=== PATIENT | female | born 1995 | race Caucasian/White ===

== ENCOUNTER → 2023-07-13 13:01 | Outpatient (REF) | payer BC, SELFPAY | LOC: HWRAD 13:01 | PROVIDERS: ATTENDING PHYSICIAN Internal Medicine Rheumatology; FAMILY PHYSICIAN Family Medicine | DX: L40.50 Arthropathic psoriasis, unspecified (principal) | CPT/HCPCS: 73110; 73130 ==

== ENCOUNTER 2024-03-22 12:00 | Emergency (ER) | payer BC, SELFPAY ==
[2024-03-22 12:06] VITALS: BP 109/64
--- NOTE | 2024-03-22 12:10 | ED.GENMED ---
ED Provider Triage
<Allen Loera PA-C - Last Filed: 03/22/24 12:11>
-
Patient seen by provider in Triage?: Seen in Triage
Attestation: A medical screening examination has been initiated by a qualified medical provider. Based on the assessment performed at this time, it has been determined that an emergent medical condition may exist and the patient has been informed
that further medical evaluation and possible additional diagnostic testing may be needed.
HPI: 29-year-old female presenting to the emergency department for evaluation of left ankle pain after running and tripping and injuring the left lateral ankle. Pain is mostly lateral. No other injury sustained. Patient does note that she had
previous fracture and surgery to the left ankle a plate and screws but this was removed back in 2008.
GENERAL: Alert , in no apparent distress
EYE: No visual abnormalities.
NECK: Trachea midline
ENT: No visible abnormalities.
LUNGS: No acute respiratory distress
NEUROLOGICAL: Alert and oriented
SKIN: Skin intact. No visible changes.
MUSCULOSKELETAL: Tenderness and edema to the left lateral ankle. No proximal tib-fib tenderness. No tenderness over the base of the fifth metatarsal or the foot/midfoot.
PSYCH: Normal and appropriate interaction.
This is a medical evaluation conducted in person to initiate diagnostic evaluation and provide initial therapeutics. Please see further documentation by the treating clinician.
X-ray of the left ankle was ordered. Patient did take Motrin prior to arrival to the ER.
History of Present Illness
<Allen Loera PA-C - Last Filed: 03/22/24 12:11>
General
Chief Complaint: Musculo-Skeletal Complaint
Time Seen by Provider: 03/22/24 12:19
<Tavo Antoine Jr., PA-C - Last Filed: 03/22/24 13:50>
General
Source: patient and spouse
Exam Limitations: none
Nursing documentation reviewed up to this point in time: agreed with
History of Present Illness
History of Present Illness:
29-year-old female presenting to the emergency department today with concerns of left-sided ankle discomfort after twisting her ankle while running today. Difficulty ambulating since. Has no swelling mainly to the lateral malleolus. Denies
numbness weakness or additional concerns.
Past History
<Allen Loera PA-C - Last Filed: 03/22/24 12:11>
Past History
ED Past Medical History: None
ED Past Surgical History: Orthopedic
Social History
Tobacco: Non-smoker
Alcohol: None
Drug: None
Review of Systems
<Tavo Antoine Jr., PA-C - Last Filed: 03/22/24 13:50>
Review of Systems
Allergies reviewed?: Yes
All Other Systems: ROS reviewed and negative except as documented in HPI and ROS
Phy Exam
<Tavo Antoine Jr., PA-C - Last Filed: 03/22/24 13:50>
Physical Exam
Physical Exam:
GENERAL: Alert , in no apparent distress
EYE: pupils equal and reactive
NECK: Supple, no significant adenopathy.
ENT: o/p clr, mmm.
CARDIAC: Regular rate and rhythm .
LUNGS: Clear breath sounds bilaterally, no acute respiratory distress, no wheezes/rales/rhonchi
ABDOMEN: Soft, without focal tenderness, no r/g, no cvat
NEUROLOGICAL: Alert and oriented, no focal neuro deficits
SKIN: Warm and dry, skin intact.
MUSCULOSKELETAL: Significant swelling to the left ankle to the lateral malleolus. Tenderness mainly to the anterior aspect and increasing with inversion movement no tenderness to the medial malleolus remainder of the foot base of the fifth
metatarsal or the tib-fib. . No redness or warmth
PSYCH: Normal and appropriate interaction.
Course
<Allen Loera PA-C - Last Filed: 03/22/24 12:11>
Orders/Labs/Results
Orders:
Orders
03/22/24 12:09
Ankle, left 3 view CR [CR Ankle - Left Min 3 Views ] Urgent
Comment:
Reason For Exam: injury
03/22/24 13:39
Crutches-Treatment ONCE
boot [Ortho Boot Left- Treatment] ONCE
Short or tall?: Tall
Vital Signs
Initial and Last Documented VS:
Initial Vital Signs
Temp Pulse Resp BP Pulse Ox
98.1 F 99 16 109/64 98
03/22/24 12:06 03/22/24 12:06 03/22/24 12:06 03/22/24 12:06 03/22/24 12:06
Last Documented Vital Signs
Temp Pulse Resp BP Pulse Ox
98.1 F 99 16 109/64 98
03/22/24 12:06 03/22/24 12:06 03/22/24 12:06 03/22/24 12:06 03/22/24 12:06
<Tavo Antoine Jr., PA-C - Last Filed: 03/22/24 13:50>
Orders/Labs/Results
Orders:
Orders
03/22/24 12:09
Ankle, left 3 view CR [CR Ankle - Left Min 3 Views ] Urgent
Comment:
Reason For Exam: injury
03/22/24 13:39
Crutches-Treatment ONCE
boot [Ortho Boot Left- Treatment] ONCE
Short or tall?: Tall
Vital Signs
Initial and Last Documented VS:
Initial Vital Signs
Temp Pulse Resp BP Pulse Ox
98.1 F 99 16 109/64 98
03/22/24 12:06 03/22/24 12:06 03/22/24 12:06 03/22/24 12:06 03/22/24 12:06
Last Documented Vital Signs
Temp Pulse Resp BP Pulse Ox
98.1 F 99 16 109/64 98
03/22/24 12:06 03/22/24 12:06 03/22/24 12:06 03/22/24 12:06 03/22/24 12:06
<Tavo Antoine Jr., PA-C - Last Filed: 03/22/24 13:50>
MDM/Problems Addressed
MDM/Problems Addressed:
29-year-old female presenting after ankle eversion injury. Tenderness to the lateral malleolus. X-ray without signs of fracture patient with likely sprain. Patient was given a walking boot and crutches considering she is having significant
difficulty with ambulation at this point with recommendations for escalation of ambulation over the next few days and orthopedic follow-up as needed. Return precautions given.
<Tavo Antoine Jr., PA-C - Last Filed: 03/22/24 13:50>
*Critical Care Note
Total Time (30-74mins, 75-104mins- exclusive of procedures): Not Applicable
ED Attending Note
<Allen Loera PA-C - Last Filed: 03/22/24 12:11>
-
Portions of this chart may have been created with voice recognition software.� Occasional wrong word or��sound alike� substitutions may have occurred due to the inherent limitations of voice recognition software.
Discharge Plan
Departure
Patient Disposition: Home (Routine Discharge)
Date of Disposition: 03/22/24
Time of Disposition: 13:40
Patient with high blood pressure during this ER visit?: No
Condition: Good
Covid-19: Not Applicable
Discharge Problem:
Ankle sprain
Instructions: Ankle Sprain ED
Prescriptions:
No Action
adalimumab [Humira] 40 MG/0.8 ML syringe kit
40 mg SC .EVERY OTHER WK
Patient Comments:
pt receives humira every two weeks
ondansetron 4 MG tablet,disintegrating
4 mg PO TIDPRN PRN (Reason: NAUSEA) Qty: 15 0RF
sulfamethoxazole-trimethoprim 1 TABLET tablet
1 tab PO BID Qty: 13 0RF
famciclovir 500 MG tablet
250 mg PO Q8 Qty: 29 0RF
meclizine 25 MG tablet
25 mg PO TID PRN (Reason: dizzy) Qty: 21 0RF
Referrals:
Mayte Bull MD [Family Provider] -
Ant Gordon MD [Active] - Follow up in 5-7 days
Activity Restrictions/Additional Instructions:
You came to the emergency department today with concerns of left-sided ankle injury. There is no evidence of fracture on the x-ray. This is likely a sprain. Please rest ice compress and elevate over the next few days as symptoms will hopefully
improve. Please follow-up closely with orthopedic if symptoms are persisting. Return to the emergency department for any worsening, new or concerning symptoms.
Interventions
Interventions:
*Risk Screen - Suicide Last Done: 03/22/24 12:06
*General Assessment Last Done: 03/22/24 12:06
*Neglect/Abuse Screening Last Done: 03/22/24 12:06
*ED COVID-19 Vaccine History Last Done: 03/22/24 13:00
ED-Musculoskeletal Assessment Last Done: 03/22/24 13:01
Discharge Date and Time
Print Language: TAJIK
[2024-03-22 13:07] VITALS: BMI 23.6
[2024-03-22 14:05] VITALS: BP 110/68
== END 2024-03-22 14:13 | disposition home or self-care (01) ==
LOC: EMR 12:00
PROVIDERS: EMERGENCY PHYSICIAN Emergency Medicine; FAMILY PHYSICIAN Family Medicine
DX: S93.402A Sprain of unspecified ligament of left ankle, initial encounter (principal); W01.0XXA Fall on same level from slipping, tripping and stumbling without subsequent striking against object, initial encounter; Y93.02 Activity, running
CPT/HCPCS: 99283; 73610

== ENCOUNTER → 2024-03-29 11:36 | Outpatient (REF) | payer BC, SELFPAY ==
[2024-03-29 12:59] LABS: Body Fluid Polymorphonuclear 90.5 %; Body Fluid WBC 33740 /CUMM
[2024-03-29 13:00] LABS: Body Fluid Mononuclear 9.5 %
[2024-03-29 13:02] LABS: Body Fluid Second Tech RP
== END ==
LOC: REG 11:36
PROVIDERS: ATTENDING PHYSICIAN Physician Assistant Surgical
DX: M25.462 Effusion, left knee (principal); M25.562 Pain in left knee
CPT/HCPCS: 89051; 89060

== ENCOUNTER → 2024-05-22 12:29 | Outpatient (REF) | payer BC, SELFPAY ==
[2024-05-22 14:51] LABS: Body Fluid Granulocytes 85 %; Body Fluid Lymphocytes 5 %; Body Fluid Macrophages 10 %
== END ==
LOC: REG 12:29
PROVIDERS: ATTENDING PHYSICIAN Physician Assistant Surgical; FAMILY PHYSICIAN Family Medicine
DX: M25.561 Pain in right knee (principal)
CPT/HCPCS: 89051; 89060

== ENCOUNTER 2024-10-30 19:06 | Observation (INO) | payer BC, SELFPAY ==
[2024-10-30 19:09] VITALS: BP 108/56; BMI 26.6
== END 2024-10-30 20:30 | disposition home or self-care (01) ==
LOC: LDRP 19:06
PROVIDERS: ADMITTING PHYSICIAN Obstetrics & Gynecology
DX: O36.8130 Decreased fetal movements, third trimester, not applicable or unspecified (principal); Z3A.28 28 weeks gestation of pregnancy
CPT/HCPCS: G0378